=== PATIENT | male | born 1960 | race Hispanic/Latino ===

== ENCOUNTER 2021-08-26 11:21 | Emergency (ER) | payer OTHER ==
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
[2021-08-26 13:01] VITALS: BP 139/96; TEMP 98.3; O2SAT 100
== END 2021-08-26 12:54 | disposition home or self-care (01) ==
LOC: ER 11:21
DX: S39.012A Strain of muscle, fascia and tendon of lower back, initial encounter (principal); S16.1XXA Strain of muscle, fascia and tendon at neck level, initial encounter; R51.9 Headache, unspecified; V49.49XA Driver injured in collision with other motor vehicles in traffic accident, initial encounter
CPT/HCPCS: 70450; 72125; 99283